=== PATIENT | female | born 1990 | race Caucasian/White ===

== ENCOUNTER 2018-03-08 07:06 | Inpatient (IN) | payer BC ==
[2018-03-08] VITALS (40 sets, daily range): BP systolic 18–131; BP diastolic 36–88; PULSE 43–144; TEMP 97.5–98.1
[~2018-03-08] VITALS: Ht 157.5 cm; Wt 73.6 kg
[~2018-03-08 07:06] MED LIST: MOTRIN 600600 MG/TAB PO; TRIAMCINOLONE A15 G3 TP; [UNRECOGNIZED DRUG - OTHER] PO
[2018-03-08 08:13] LABS: BASO % 0.3 % (0.0-2.0); EOS # 0.1 (0.0-0.7); GRAN # 8.5 (1.4-6.5); GRAN % 71.2 % (42.2-75.2); HEMOGLOBIN 12.9 g/dl (12.5-16.0); LYMPH # 2.2 (1.2-3.4); LYMPH % 18.7 % (20.0-51.0); MEAN CELL VOLUME 91 fl (80.0-100.0); MEAN CORPUSCULAR HEMOGLOBIN 32 pg (27.0-31.0); MEAN CORPUSCULAR HGB CONC 35 g/dl (33.0-37.0); MEAN PLATELET VOLUME 11.1 fl (7.4-10.4); MONO % 8.2 % (1.7-9.3); PLATELET COUNT 249 K/mm3 (130-400); RED BLOOD COUNT 4.01 M/mm3 (4.10-5.30); REDCELL DISTRIBUTION WIDTH-CV 13.3 % (11.5-14.5)
[2018-03-08 08:14] LABS: HEMATOCRIT 36.6 % (37.0-47.0)
[2018-03-09 03:00] VITALS: BP 102/76; PULSE 91; TEMP 98
[2018-03-09 07:48] VITALS: BP 115/67; PULSE 68; TEMP 98.2
[2018-03-09] MEDS ORDERED: PERCOCET 325 MG1 TA2 PO (09:00)
[2018-03-09] MEDS ORDERED: IBU800 M1 PO (09:00)
[2018-03-09 11:10] VITALS: BP 104/62; PULSE 82; TEMP 98.1
== END 2018-03-09 15:33 | disposition home or self-care (01) | DRG 775 ==
LOC: LDR 07:06 → OB 07:06 → LDR 14:33 → OB 17:47
PROVIDERS: Student in an Organized Health Care Education/Training Program
PROC: 10E0XZZ Delivery of Products of Conception, External Approach (ICD-10-PCS; principal; 2018-03-08)
PROC: 3E033VJ Introduction of Other Hormone into Peripheral Vein, Percutaneous Approach (ICD-10-PCS; 2018-03-08)
PROC: 10907ZC Drainage of Amniotic Fluid, Therapeutic from Products of Conception, Via Natural or Artificial Opening (ICD-10-PCS; 2018-03-08)
DX: O32.3XX0 Maternal care for face, brow and chin presentation, not applicable or unspecified (principal); Z3A.39 39 weeks gestation of pregnancy; Z37.0 Single live birth
CPT/HCPCS: J2405; J2590; J7120

== ENCOUNTER 2019-08-03 06:11 | Day surgery (SDC) | payer OTHER ==
[~2019-08-03] VITALS: Ht 157.5 cm; Wt 56.4 kg
[~2019-08-03 06:11] MED LIST changes: +IBU800 M1 PO; +PERCOCET 325 MG1 TA2 PO
[2019-08-03] MEDS ORDERED: BLISOVI FE 1-21 EACH PO (06:38)
[2019-08-03 06:39] VITALS: BP 121/63; PULSE 91; TEMP 98.4
[2019-08-03 08:10] VITALS: BP 113/54; PULSE 96; TEMP 98
--- NOTE | 2019-08-03 08:10 | NUR ---
TO BAY 1 PER CART FROM ENDOSCOPY. ALERT ORIENTED X3,TALKING TO STAFF AND FAMILY. AMBULATED TO RECLINER AND C/O FEELING DIZZY. LAYED RECLINER BACK AND ELEVATED FEET.
[2019-08-03 08:25] VITALS: BP 102/48; PULSE 92
--- NOTE | 2019-08-03 08:25 | NUR ---
RECEIVED WATER AND JUICE PER REQUEST
[2019-08-03 08:40] VITALS: BP 109/87; PULSE 76
--- NOTE | 2019-08-03 08:40 | NUR ---
DR POSADA INTO TALK WITH PATIENT AND .
--- NOTE | 2019-08-03 08:53 | NUR ---
RECEIVED MUFFIN RECEIVED DISCHARGE INSTRUCTIONS AND VERBALIZED UNDERSTANDING. DISCONTINUED IV AND INT- CATHETER INTACT.
--- NOTE | 2019-08-03 09:00 | NUR ---
UPON GETTING DRESSED, PATIENT C/O BEING TOO DIZZY TO STAND UP. HAD PATIENT LAY BACK DOWN. CALL LIGHT IN REACH AND DAUGHTER AT BEDSIDE.
--- NOTE | 2019-08-03 09:15 | NUR ---
DISCHARGED PER WC BY NURSING STAFF TO PRIVATE CAR IN CARE OF - JONATHAN.
== END 2019-08-03 09:20 | disposition home or self-care (01) ==
LOC: SDCO 06:11
DX: D12.5 Benign neoplasm of sigmoid colon (principal); R19.7 Diarrhea, unspecified; R11.0 Nausea; Z80.0 Family history of malignant neoplasm of digestive organs; K92.1 Melena
CPT/HCPCS: J2250; J3010; J7030

== ENCOUNTER 2021-04-10 06:45 | Inpatient (IN) | payer BC ==
[2021-04-10] VITALS (24 sets, daily range): BP systolic 98–136; BP diastolic 57–85; PULSE 70–97; TEMP 97.6–98
[~2021-04-10] VITALS: Ht 157.5 cm; Wt 76.2 kg
[~2021-04-10 06:45] MED LIST changes: +BLISOVI FE 1-21 EACH PO
[2021-04-10 07:38] LABS: BASO % 0.3 % (0.0-2.0); EOS # 0.1 (0.0-0.7); EOS % 1.5 % (0-4.0); GRAN # 5.8 (1.4-6.5); GRAN % 63.8 % (42.2-75.2); HEMOGLOBIN 11.9 g/dl (12.5-16.0); LYMPH # 2.1 (1.2-3.4); LYMPH % 23.2 % (20.0-51.0); MEAN CELL VOLUME 93 fl (80.0-100.0); MEAN CORPUSCULAR HEMOGLOBIN 32 pg (27.0-31.0); MEAN CORPUSCULAR HGB CONC 35 g/dl (33.0-37.0); MEAN PLATELET VOLUME 11.1 fl (7.4-10.4); MONO # 0.9 (0.1-0.6); MONO % 10.3 % (1.7-9.3); PLATELET COUNT 266 K/mm3 (130-400); RED BLOOD COUNT 3.69 M/mm3 (4.10-5.30); REDCELL DISTRIBUTION WIDTH-CV 13.7 % (11.5-14.5)
[2021-04-10 07:52] LABS: HEMATOCRIT 34.4 % (37.0-47.0)
--- NOTE | 2021-04-10 08:17 | NUR ---
ADMIT NOTE: PT. ARRIVED TO UNIT AROUND 0650 FOR SCHEDULED IOL. PT. WAS ESCORTED TO LDR4 AND WAS INSTRUCTED TO USE BATHROOM/CHANGE INTO GOWN. PT. WAS THEN PLACED ON EXTERNAL MONITORS AND VS WERE OBTAINED. ALL WNL. STRIP REACTIVE. IV WAS STARTED IN R. HAND AND MAINTENCE LR WAS STARTED. PITOCIN WAS STARTED AT 2MU/MIN PER PROTOCOL. CONSENTS WERE OBTAINED AND ASSESSMENTS WERE DONE. PT. STABLE AND WITH NO COMPLAINTS AT THIS TIME. PT. EDUCATED ON POC AND VERBALIZES UNDERSTANDING. CALL LIGHT WITHIN REACH AND WATER AND PHONE AT BS. WILL CONTINUE TO MONITOR PT.
--- NOTE | 2021-04-10 10:51 | NUR ---
EPIDURAL: 1000: ANESTHESIA, GRANT AT BS 1002:TIME OUT COMPLETED AND PT. STITING UP AT SIDE OF BED. 1018: TEST DOSE COMPLETED 1023: PT. LAID DOWN SEMI-FOWLERS PT. TOLERATED EPIDURAL PLACEMENT WELL. NO COMPLAINTS
--- NOTE | 2021-04-10 13:16 | NUR ---
DELIVERY NOTE: 1208: PT. COMPLETE PER DR. SHAH. PT. PUT IN FOOT PEDALS AND BED BROKEN DOWN. DR. SHAH AT PERINEUM FOR DELIVERY. PT. EDUCATED ON PUSHING. PT. PUSHED WITH CONTRACTIONS. 1214: DELIVERY OF HEAD. DIFFICULTY DELIVERING SHOULDERS. HEAD OF BED LOWERED AND PT. PUT IN MCROBERT'S POSITION. 1215: VIABLE BABY GIRL DELIVERED. INDUCTION PITOCIN STOPPED. INFANT ON MOM'S STOMACH, CORD BLOOD DRAWN BY DR. SHAH. 1218: SPONTANEOUS DELIVERY OF PLACENTA PITOCIN STARTED. NO LACERATIONS PER DR. SHAH. OVER TO READY WARMER WITH NURSERY NURSE 1220:FUNDAL RUB BY DR. SHAH AND LARGE GUSH OF BLOOD NOTED. FUNDUS FIRM AND BLEEDING STOPPED AFTER INITIAL GUSH. PT. NO COMPLAINTS AND WILL ENTER RECOVERY PERIOD. WILL CONTINUE TO MONITOR MOM AND BABY.
[2021-04-11 02:00] VITALS: BP 98/77; PULSE 80; TEMP 97.5
[2021-04-11 08:05] VITALS: BP 97/74; PULSE 92; TEMP 98.7
[2021-04-11] MEDS ORDERED: IBU800 M1 PO (11:21)
[2021-04-11] MEDS ORDERED: PERCOCET 325 MG1 TA2 PO (11:21)
== END 2021-04-11 13:25 | disposition home or self-care (01) | DRG 807 ==
LOC: LDR 06:47 → OB 14:43
PROVIDERS: ADMIT Student in an Organized Health Care Education/Training Program
PROC: 10E0XZZ Delivery of Products of Conception, External Approach (ICD-10-PCS; principal; 2021-04-10)
PROC: 10907ZC Drainage of Amniotic Fluid, Therapeutic from Products of Conception, Via Natural or Artificial Opening (ICD-10-PCS; 2021-04-10)
DX: O80 Encounter for full-term uncomplicated delivery (principal); Z37.0 Single live birth; Z3A.39 39 weeks gestation of pregnancy
CPT/HCPCS: J2210; J2590; J7120

== ENCOUNTER → 2021-05-08 | Outpatient (CLI) | payer BC ==
--- NOTE | 2021-05-08 13:24 | NUR ---
Pt, Bry Esposito, presents for outpatient consult with 1 month old baby girl, Flakita Esposito, because Flakita is not gaining weight as expected. Flakita was born on [birth year] and weighed 8#11oz (3940 gms). She is this pt's fourth baby. She nursed the other babies 5-8 months. Pt states Flakita was seen by Dr. Wagner on 04/23/21 and she weighed 8.18# (8#2.9 oz). Dr. Wagner's office reports weights as follows: 04/20 7.78# (7# 12.5oz) 04/22 7.89# (7# 14.24oz) 04/24 7.91# (7# 14.56oz) 04/29 8.05# (8# 0.8oz) 05/05 8.18# (8# 2.9oz) Pt states Flakita nurses q 2 hours except for one four hour stretch in the early night time, so 11 feedings per 24 hours. She started supplementing Flakita with 1oz formula after part of the daytime feedings for a total of 4oz on each 05/07 and 05/08, and 2oz so far today. Today Flakita weighs 8#8.2oz. Pt states she feed Flakita on the left breast about an hour ago and gave her 2oz formula after so on an empty stomach she is probably close to 8# 5 or 6oz. After the right side Flakita had a gain of 1.1oz (32 gms), from the left a gain of 0.4oz (10gms). She has another round of nursing while LC and pt discuss findings and her total gain is 1.8oz (50 gms). A small, WNL, spit up noted after laying down to dress Flakita. Impression: Low milk supply. Discussed possiblity of increasing milk supply and options she has been working on. POC: Pt will breastfeed and supplement 1-2oz formula or EBM as available after the daytime feedings. F/U: Dr. Wagner on 05/11/21. Pt to contact this LC as needed.
== END ==
LOC: LDRO 12:50
DX: Z39.1 Encounter for care and examination of lactating mother (principal); Z71.89 Other specified counseling

== ENCOUNTER 2022-02-27 10:52 | Emergency (ER) | payer BC ==
[~2022-02-27] VITALS: Ht 160 cm; Wt 60.5 kg
[2022-02-27 11:49] LABS: COLLECTION METHOD CLEAN CATCH
[2022-02-27 11:57] LABS: PH 7 (5-8); SQUAMOUS EPITHELIAL 20-50 /hpf (0-10); URINE APPEARANCE Cloudy (CLEAR/HAZY); URINE BACTERIA Rare /hpf (NONE SEEN); URINE BILIRUBIN Negative (NEGATIVE); URINE BLOOD Negative (NEGATIVE); URINE COLOR Straw (YELLOW); URINE GLUCOSE Negative (NEGATIVE); URINE KETONE Negative (NEGATIVE); URINE LEUKOCYTE ESTERASE Negative (NEGATIVE); URINE NITRATE Negative (NEGATIVE); URINE PROTEIN(semi-quant) Negative (NEGATIVE); URINE RBC 0-2 /hpf (0-2); URINE UROBILINOGEN Negative (NEGATIVE)
[2022-02-27 11:58] LABS: BASO # 0.1 K/mm3 (0.0-0.2); BASO % 0.5 % (0.0-2.0); EOS # 0.1 K/mm3 (0.0-0.7); EOS % 1.1 % (0.0-4.0); GRAN # 7.3 K/mm3 (1.4-6.5); GRAN % 71.6 % (42.2-75.2); HEMATOCRIT 38.7 % (37.0-47.0); HEMOGLOBIN 13.2 g/dl (12.5-16.0); LYMPH # 1.7 K/mm3 (1.2-3.4); LYMPH % 16.3 % (20.0-51.0); MEAN CELL VOLUME 92 fl (80.0-100.0); MEAN CORPUSCULAR HEMOGLOBIN 31 pg (27-31); MEAN CORPUSCULAR HGB CONC 34 g/dl (33.0-37.0); MEAN PLATELET VOLUME 10.7 fl (7.4-10.4); MONO % 10.3 % (1.7-9.3); PLATELET COUNT 293 K/mm3 (130-400); RED BLOOD COUNT 4.22 M/mm3 (4.10-5.30); REDCELL DISTRIBUTION WIDTH-CV 12.2 % (11.5-14.5)
[2022-02-27 12:23] LABS: ALBUMIN 4.2 gm/dL (3.5-5.0); BILIRUBIN,TOTAL 0.7 mg/dL (0.2-1.2); C-REACTIVE PROTEIN 0.84 mg/dL (0.00-0.50); CALCIUM 8.5 mg/dL (8.4-10.2); CREATININE, serum 0.77 mg/dL (0.57-1.11); TOTAL PROTEIN 6.9 gm/dL (6.2-8.1)
[2022-02-27 14:18] VITALS: BP 121/94; PULSE 78; TEMP 97.8
== END 2022-02-27 14:21 | disposition home or self-care (01) ==
LOC: COL.ER 10:52
PROVIDERS: Physician Assistant
DX: R07.81 Pleurodynia (principal); R10.13 Epigastric pain; R10.11 Right upper quadrant pain; Z28.311 Partially vaccinated for COVID-19
CPT/HCPCS: J1885; J7030; Q9967